=== PATIENT | female | born 1945 | race Caucasian/White ===

== ENCOUNTER 2017-05-18 06:23 | Inpatient (IN) | payer MEDICARE, OTHER ==
[~2017-05-18] VITALS: Ht 154.9 cm; Wt 63.5 kg
[~2017-05-18 06:23] MED LIST: ADDERALL PO; NORCO PO
[2017-05-18] MEDS ORDERED: HYDR-548 PO (06:44)
[2017-05-18] MEDS ORDERED: GABA-534 PO (06:44)
[2017-05-18 07:21] LABS: BASOPHILS % (AUTO) 0.6 % (0.0-2.0); EOSINOPHILS # (AUTO) 0.1 K/uL (0.0-0.7); EOSINOPHILS % (AUTO) 1.2 % (0.0-7.0); HEMATOCRIT 37.7 % (31.2-41.9); HEMOGLOBIN 12.9 g/dL (10.9-14.3); LYMPHOCYTES # (AUTO) 1.4 K/uL (20.0-40.0); LYMPHOCYTES % (AUTO) 26.6 % (20.5-51.5); MEAN CORPUSCULAR HGB CONC 34 g/dL (32.3-35.6); MEAN CORPUSCULAR VOLUME 90.8 fL (75.5-95.3); MONOCYTES # (AUTO) 0.5 K/uL (2.0-10.0); NEUTROPHILS # (AUTO) 3.3 K/uL (1.8-8.9); NEUTROPHILS % (AUTO) 62.6 % (38.5-71.5); RED BLOOD CELL COUNT(AUTO) 4.15 MIL/uL (3.63-4.92)
[2017-05-18 07:25] LABS: CARBON DIOXIDE 30 mmol/L (21-32); CHLORIDE 107 mmol/L (98-107); CREATININE 0.6 mg/dL (0.6-1.3); GLUCOSE 97 mg/dL (74-106); POTASSIUM 3.8 mmol/L (3.5-5.1); UREA NITROGEN, BLOOD 14 mg/dL (7-18)
[2017-05-18 07:33] LABS: PLATELET COUNT (AUTO) 261 K/uL (179-408); WHITE BLOOD COUNT (AUTO) 5.4 K/uL (3.8-11.8)
[2017-05-18 07:38] LABS: ALANINE AMINOTRANSFERASE 45 U/L (14-59); ALKALINE PHOSPHATASE 101 U/L (50-136); ASPARTATE AMINOTRANSFERASE 28 U/L (15-37); BILIRUBIN,DIRECT 0.1 mg/dL (0.0-0.2); BILIRUBIN,TOTAL 0.4 mg/dL (0.2-1.0); TOTAL PROTEIN, SERUM 7.2 g/dL (6.4-8.2)
--- NOTE | 2017-05-18 09:42 | NUR ---
Jamal tovar in [facility] - 05/18/17 at 0954 by HUDSON spoke with ALEX Uribe via telephone.
--- NOTE | 2017-05-18 09:42 | NUR ---
spoke with DEIDRE Ash via telephone and pt to be admitted to m/s.
[2017-05-18] MEDS ORDERED: METRONIDAZOLE 500 MG/NS 100ML 500 MG in PREMIXED 1 EACH IV SCH (10:00)
[2017-05-18] MEDS ORDERED: IV NS 1000 ML 1,000 ML IV PRN ×2 (10:00→10:30)
[2017-05-18] MEDS ORDERED: ACETAMINOPHEN 325 MG TABLET PO PRN ×2 (10:00→10:30)
[2017-05-18] MEDS ORDERED: HYDROCODONE/APAP 10-325 MG TABLET PO PRN (10:00)
[2017-05-18] MEDS ORDERED: MORPHINE SULFATE 2 MG/1 ML DISP.SYRIN IV PRN ×2 (10:00→10:30)
[2017-05-18] MEDS ORDERED: LEVOFLOXACIN 500 MG/D5W 500 MG in PREMIXED 1 EACH IV SCH (10:00)
[2017-05-18] MEDS ORDERED: ONDANSETRON 4 MG/2 ML VIAL IV PRN ×2 (10:00→10:30)
--- NOTE | 2017-05-18 10:00 | NUR ---
Pt property management form completed, pt has her purse but declined to list contents. Pt stated " I have some money but I want to keep it with me". Pt was notified that the hospital will not be responsible for lost property and verblized understanding.
--- NOTE | 2017-05-18 10:12 | NUR ---
SBAR report given to Gracia via telephone.
--- NOTE | 2017-05-18 10:25 | NUR ---
Pt trans to m/s floor , NAD noted.
[2017-05-18 10:36] LABS: *OCCULT BLOOD STOOL POSITIVE (NEGATIVE)
--- NOTE | 2017-05-18 11:06 | NUR ---
71 year old female received from er via wheel chair for abdominal pain .v/s are stable.md called for admission orders.
[2017-05-18 11:15] VITALS: BP 169/78
[2017-05-18] MEDS ORDERED: HYDROMORPHONE 2 MG/1 ML DISP.SYRIN IV PRN (11:15)
[2017-05-18] MEDS: LEVOFLOXACIN 500 MG/D5W 500 MG in PREMIXED 1 EACH IV SCH (11:34)
[2017-05-18 13:04] LABS: *BILIRUBIN,URIN NEGATIVE (NEGATIVE); *BLOOD, URINE Trace-intact (NEGATIVE); *CLARITY,URINE CLEAR (CLEAR); *COLOR,URINE YELLOW (YELLOW); *KETONES,URINE NEGATIVE (NEGATIVE); *PROTEIN,URINE NEGATIVE (NEGATIVE); *UROBILINOGEN,URINE 0.2 E.U./dl (NORMAL); LEUKOCYTE ESTERASE ,URINE NEGATIVE (NEGATIVE); NITRITE, URINE NEGATIVE (NEGATIVE); PH,URINE 7.5 (5.0-8.0); UGLUCOSE NEGATIVE (NEGATIVE)
[2017-05-18 13:13] LABS: BACTERIA,URINE NONE SEEN /HPF (NONE SEEN); MUCUS,URINE FEW /LPF (0-FEW); RBC,URINE 0-3 /HPF (0-3); SQUAMOUS EPITHELIAL CELL,UR FEW /HPF (NONE SEEN); URINE AMORPHOUS PHOSPHATES FEW /HPF; WBC,URINE 0-3 /HPF (0-3)
[2017-05-18] MEDS: METRONIDAZOLE 500 MG/NS 100ML 500 MG in PREMIXED 1 EACH IV SCH ×2 (13:20→21:23)
[2017-05-18] MEDS: HYDROCODONE/APAP 10-325 MG TABLET PO PRN ×2 (13:24→18:25)
[2017-05-18] MEDS ORDERED: MAG HYDROX/AL HYDROX/SIMETH 30 ML LIQUID UDC PO PRN (14:00)
[2017-05-18] MEDS: LACTOBACILLUS RHAMNOSUS GG 1 EACH CAPSULE PO SCH ×2 (15:04→20:24)
[2017-05-18] MEDS: AMLODIPINE 5 MG TABLET PO SCH (15:07)
[2017-05-18] MEDS: HYDROCORTISONE 1% CREAM 30 GM TUBE TP SCH ×2 (15:07→20:24)
[2017-05-18 15:09] VITALS: BP 144/69
--- NOTE | 2017-05-18 19:30 | NUR ---
Received the patient laying comfortably in bed. No acute distress noted. MD at bedside. Safety initiated. Call light within reach. Will continue to monitor.
[2017-05-18 20:00] VITALS: BP 139/83
[2017-05-18] MEDS ORDERED: GABAPENTIN 300 MG CAPSULE PO SCH (21:00)
[2017-05-18] MEDS: GABAPENTIN 300 MG CAPSULE PO SCH (21:23)
[2017-05-19] MEDS: HYDROCODONE/APAP 10-325 MG TABLET PO PRN ×4 (01:37→20:23)
[2017-05-19] MEDS: METRONIDAZOLE 500 MG/NS 100ML 500 MG in PREMIXED 1 EACH IV SCH ×3 (05:10→21:08)
--- NOTE | 2017-05-19 05:59 | NUR ---
No changes t/o shift. No acute distress noted. Patient slept intermittently t/o shift. C/O of generalized pain, meds given stated relief. Vital signs stable. O2 sat 98% on room air. Nourishment provided. Safety and comfort measures maintained t/o shift. No BM. All meds given as ordered. All needs met.
[2017-05-19 06:15] VITALS: BP 121/71
[2017-05-19 07:11] LABS: LYMPHOCYTES # (AUTO) 2.1 K/uL (20.0-40.0); MEAN CORPUSCULAR VOLUME 90.9 fL (75.5-95.3)
[2017-05-19 07:19] LABS: BASOPHILS % (AUTO) 0.3 % (0.0-2.0); EOSINOPHILS # (AUTO) 0.1 K/uL (0.0-0.7); EOSINOPHILS % (AUTO) 1.9 % (0.0-7.0); HEMATOCRIT 36.7 % (31.2-41.9); HEMOGLOBIN 12.2 g/dL (10.9-14.3); LYMPHOCYTES % (AUTO) 29.4 % (20.5-51.5); MEAN CORPUSCULAR HEMOGLOBIN 30.4 uug (24.7-32.8); MEAN CORPUSCULAR HGB CONC 33 g/dL (32.3-35.6); MONOCYTES # (AUTO) 0.9 K/uL (2.0-10.0); MONOCYTES % (AUTO) 12.9 % (0.0-11.0); NEUTROPHILS % (AUTO) 55.5 % (38.5-71.5); PLATELET COUNT (AUTO) 254 K/uL (179-408); RED BLOOD CELL COUNT(AUTO) 4.03 MIL/uL (3.63-4.92); WHITE BLOOD COUNT (AUTO) 7.2 K/uL (3.8-11.8)
[2017-05-19] MEDS: LIPASE/PROTEASE/AMYLASE 4200 UNITS CAPSULE.DR PO SCH ×3 (08:00→16:57)
[2017-05-19] MEDS ORDERED: PANCREATIC ENZYME PO SCH (08:00)
[2017-05-19 08:19] LABS: ALANINE AMINOTRANSFERASE 44 U/L (14-59); ALKALINE PHOSPHATASE 88 U/L (50-136); ASPARTATE AMINOTRANSFERASE 25 U/L (15-37); BILIRUBIN,TOTAL 0.3 mg/dL (0.2-1.0); CARBON DIOXIDE 27 mmol/L (21-32); CHLORIDE 105 mmol/L (98-107); CHOLESTEROL 168 mg/dL (<200); CREATININE 0.5 mg/dL (0.6-1.3); GLUCOSE 108 mg/dL (74-106); HDL CHOLESTEROL 84 mg/dL (40-60); MAGNESIUM 1.8 mg/dL (1.8-2.4); POTASSIUM 3.8 mmol/L (3.5-5.1); TOTAL PROTEIN, SERUM 6.4 g/dL (6.4-8.2); TRIGLYCERIDES 62 MG/DL (30-150); UREA NITROGEN, BLOOD 14 mg/dL (7-18)
[2017-05-19] MEDS: LACTOBACILLUS RHAMNOSUS GG 1 EACH CAPSULE PO SCH ×2 (08:40→20:21)
[2017-05-19] MEDS: AMLODIPINE 5 MG TABLET PO SCH (08:42)
[2017-05-19] MEDS: FAMOTIDINE 20 MG TABLET PO SCH (08:46)
[2017-05-19] MEDS: HYDROCORTISONE 1% CREAM 30 GM TUBE TP SCH ×2 (08:47→20:23)
[2017-05-19 08:59] LABS: THYROID STIMULATING HORMONE 1.947 mIU/mL (0.358-3.740)
[2017-05-19] MEDS ORDERED: FAMOTIDINE 20 MG TABLET PO SCH (09:00)
[2017-05-19 11:09] VITALS: BP 136/73
[2017-05-19] MEDS: LEVOFLOXACIN 500 MG/D5W 500 MG in PREMIXED 1 EACH IV SCH (12:15)
[2017-05-19] MEDS ORDERED: LEVOFLOXACIN 500 MG/D5W 100 ML ONE ×3 (12:24→16:50)
[2017-05-19 15:27] VITALS: BP 136/70
--- NOTE | 2017-05-19 18:00 | NUR ---
PT RECEIVED IN BED. HEAD TO TOE ASSESSMENT GIVEN. MEDICATION ADMINISTERED PER MD ORDERS. PAIN REPORTED (CHRONIC) IN BACK AND ABDOMEN. PAIN MEDICATION GIVEN PER MD ORDERS. PATIENT COMPLAINED OF NUMEROUS BOWEL MOVEMENTS THROUGHOUT THE DAY. MD IS AWARE. MAY BE NEW MEDICATION BEING TAKEN. WILL CONTINUE TO MONITOR THE PATIENT THROUGHOUT THE SHIFT.
--- NOTE | 2017-05-19 18:43 | NUR ---
PATIENT HAS HAD DIARREHA ALL DAY 4 TIMES TOTAL. Addendum: 05/19/17 at 1845 by BALA RAND RN Amended: Links added.
--- NOTE | 2017-05-19 19:30 | NUR ---
Received patient laying comfortably in bed. No acute distress noted. A&O x 4. No c/o diarrhea as of 1800. No c/o pain at the moment. Patient is ambulatory, BRP. IV site is not on the left FA # 20. Safety initiated. Call light within reach. Will continue to monitor.
[2017-05-19 20:00] VITALS: BP 135/81
[2017-05-19] MEDS: GABAPENTIN 300 MG CAPSULE PO SCH (22:10)
[2017-05-20] MEDS: HYDROCODONE/APAP 10-325 MG TABLET PO PRN ×3 (02:15→12:01)
[2017-05-20 04:21] VITALS: BP 121/65
[2017-05-20] MEDS: METRONIDAZOLE 500 MG/NS 100ML 500 MG in PREMIXED 1 EACH IV SCH (05:02)
--- NOTE | 2017-05-20 06:02 | NUR ---
No changes t/o shift. No acute distress noted. No c/o diarrhea. C/o pain in her back 02/08, meds given stated relief. Patient slept intermittently t/o shift. Vital signs stable. Safety and comfort measures maintained t/o shift. All meds given as ordered. All needs met.
[2017-05-20 07:07] LABS: BASOPHILS % (AUTO) 0.4 % (0.0-2.0); EOSINOPHILS # (AUTO) 0.2 K/uL (0.0-0.7); EOSINOPHILS % (AUTO) 2.4 % (0.0-7.0); HEMATOCRIT 38.7 % (31.2-41.9); HEMOGLOBIN 12.9 g/dL (10.9-14.3); LYMPHOCYTES # (AUTO) 2.5 K/uL (20.0-40.0); LYMPHOCYTES % (AUTO) 27.9 % (20.5-51.5); MEAN CORPUSCULAR HEMOGLOBIN 30.5 uug (24.7-32.8); MEAN CORPUSCULAR HGB CONC 33 g/dL (32.3-35.6); MEAN CORPUSCULAR VOLUME 91.9 fL (75.5-95.3); MONOCYTES # (AUTO) 1.1 K/uL (2.0-10.0); MONOCYTES % (AUTO) 12.2 % (0.0-11.0); NEUTROPHILS # (AUTO) 5.1 K/uL (1.8-8.9); NEUTROPHILS % (AUTO) 57.1 % (38.5-71.5); PLATELET COUNT (AUTO) 267 K/uL (179-408); RED BLOOD CELL COUNT(AUTO) 4.21 MIL/uL (3.63-4.92); WHITE BLOOD COUNT (AUTO) 8.9 K/uL (3.8-11.8)
[2017-05-20 07:24] LABS: ALANINE AMINOTRANSFERASE 43 U/L (14-59); ALKALINE PHOSPHATASE 94 U/L (50-136); ASPARTATE AMINOTRANSFERASE 27 U/L (15-37); BILIRUBIN,TOTAL 0.3 mg/dL (0.2-1.0); CARBON DIOXIDE 30 mmol/L (21-32); CHLORIDE 108 mmol/L (98-107); CREATININE 0.6 mg/dL (0.6-1.3); GLUCOSE 86 mg/dL (74-106); MAGNESIUM 1.9 mg/dL (1.8-2.4); PHOSPHOROUS 3.8 mg/dL (2.5-4.9); POTASSIUM 4.3 mmol/L (3.5-5.1); TOTAL PROTEIN, SERUM 6.6 g/dL (6.4-8.2); UREA NITROGEN, BLOOD 12 mg/dL (7-18)
--- NOTE | 2017-05-20 08:00 | NUR ---
AWAKE ALERT COOPERATE WELL NO PAIN OR SOB RESTING WELL WITH CALL BARRY IN REACH
[2017-05-20] MEDS: LACTOBACILLUS RHAMNOSUS GG 1 EACH CAPSULE PO SCH (08:37)
[2017-05-20] MEDS: LIPASE/PROTEASE/AMYLASE 4200 UNITS CAPSULE.DR PO SCH ×3 (08:38→12:02)
[2017-05-20] MEDS: AMLODIPINE 5 MG TABLET PO SCH (08:38)
[2017-05-20] MEDS: FAMOTIDINE 20 MG TABLET PO SCH (08:38)
[2017-05-20] MEDS: HYDROCORTISONE 1% CREAM 30 GM TUBE TP SCH (08:39)
--- NOTE | 2017-05-20 11:00 | NUR ---
ALEX VILLALBA SEE PATIENT AND PT CONDITION INFORM ORDER OK TO D/C HOME TODAY D/C INSTRUCTION REGARDING F/U WITH OWN PMD CONTINUE HOME MEDICINE ORDER EDUCATION PK GIVEN ,UNDERSTAND AND SIGNS D/C SHEET HL WAS ROSINA PRIOR D/C HOME TODAY
[2017-05-20] MEDS ORDERED: LACT1CAP57 PO (11:22)
[2017-05-20] MEDS ORDERED: MAG30ORA PO (11:22)
[2017-05-20] MEDS ORDERED: METR500T4 PO (11:22)
[2017-05-20] MEDS ORDERED: FAMO20TA8 PO (11:22)
[2017-05-20] MEDS ORDERED: HYDR30CR10 TP (11:22)
[2017-05-20] MEDS ORDERED: LIPA1CAP27 PO (11:22)
[2017-05-20] MEDS: LEVOFLOXACIN 500 MG/D5W 500 MG in PREMIXED 1 EACH IV SCH (12:02)
[2017-05-20 12:12] VITALS: BP 137/74
[2017-05-20] MEDS ORDERED: LEVO500T90 PO (13:38)
[2017-05-20] MEDS ORDERED: METRONIDAZOLE 500 MG TABLET PO SCH (14:00)
--- NOTE | 2017-05-20 14:00 | NUR ---
PHASTEFY EXPLAINED ALL HOME MEDICATION ,UNDERSTAND
--- NOTE | 2017-05-20 15:45 | NUR ---
D/C HOME WITH HER BELONGING ACCOMPANIES WITH FRIEND CONDITION STABLE
[2017-05-21] MEDS ORDERED: LEVOFLOXACIN 500 MG TABLET PO SCH (12:00)
[2017-05-22 17:05] LABS: *FECAL FAT NEUTRAL Normal (.); *FECAL FAT TOTAL Normal (.)
== END 2017-05-20 16:00 | disposition home or self-care (01) | DRG 392 ==
LOC: ER 06:31 → MED 10:45
PROVIDERS: ADMIT Internal Medicine; ATTEND Internal Medicine
DX: K58.9 Irritable bowel syndrome, unspecified (principal); E44.0 Moderate protein-calorie malnutrition; I34.1 Nonrheumatic mitral (valve) prolapse; N39.0 Urinary tract infection, site not specified; G89.29 Other chronic pain; Z96.643 Presence of artificial hip joint, bilateral; Z98.1 Arthrodesis status; Z82.49 Family history of ischemic heart disease and other diseases of the circulatory system; Z80.1 Family history of malignant neoplasm of trachea, bronchus and lung; M79.7 Fibromyalgia; Z68.26 Body mass index [BMI] 26.0-26.9, adult; R73.9 Hyperglycemia, unspecified; R21 Rash and other nonspecific skin eruption; T88.8XXS Other specified complications of surgical and medical care, not elsewhere classified, sequela; T81.89XS Other complications of procedures, not elsewhere classified, sequela; R19.5 Other fecal abnormalities; R11.0 Nausea; Z77.098 Contact with and (suspected) exposure to other hazardous, chiefly nonmedicinal, chemicals; I10 Essential (primary) hypertension
CPT/HCPCS: 36415; 70030-TC; 71010; 82378; 83605; 83690; 83735; 84100; 84443; 85025; 85730; 86625; 87040; 87046; 87086; 87177; 89055; 93005; A4663; J1956; J3490; J7030

== ENCOUNTER 2018-07-03 13:40 | Emergency (ER) | payer MEDICARE ==
[~2018-07-03] VITALS: Ht 154.9 cm; Wt 68.0 kg
[~2018-07-03 13:40] MED LIST changes: -ADDERALL PO; +FAMO20TA8 PO; +GABA-534 PO; +HYDR-4354 PO; +HYDR30CR10 TP; +LACT1CAP57 PO; +LEVO500T90 PO; +LIPA1CAP27 PO; +MAG30ORA PO; +METR-147 PO; -NORCO PO
--- NOTE | 2018-07-03 15:45 | NUR ---
Patient discharged to home in stable conditon. Written and verbal after care instructions given. Patient verbalizes understanding of instructions.
== END 2018-07-03 15:49 | disposition home or self-care (01) ==
LOC: ER 13:43
DX: S81.812A Laceration without foreign body, left lower leg, initial encounter (principal); S13.9XXA Sprain of joints and ligaments of unspecified parts of neck, initial encounter; S33.5XXA Sprain of ligaments of lumbar spine, initial encounter; R51 Headache; Z88.2 Allergy status to sulfonamides; Z79.891 Long term (current) use of opiate analgesic; Z79.899 Other long term (current) drug therapy; Z79.2 Long term (current) use of antibiotics; W01.198A Fall on same level from slipping, tripping and stumbling with subsequent striking against other object, initial encounter; Y93.89 Activity, other specified; Y92.89 Other specified places as the place of occurrence of the external cause; Y99.8 Other external cause status
CPT/HCPCS: 70450; 72125; A4217; A4663